=== PATIENT | male | born 1975 | race Hispanic/Latino ===

== ENCOUNTER 2018-05-12 09:53 | Emergency (ER) | payer OTHER ==
--- NOTE | 2018-05-12 11:02 | RAD ---
LEFT FOOT THREE VIEWS: HISTORY: Puncture wound and left foot pain. Evaluate for osseous injury. TECHNIQUE/FINDINGS: AP, lateral, and oblique views of the left foot demonstrate no evidence of left foot fractures, sublu xations, or bony lesions. IMPRESSION: Normal three views left foot. POS: [facility]
== END 2018-05-12 10:53 | disposition home or self-care (01) ==
LOC: SCSER 09:53
DX: S91.332A Puncture wound without foreign body, left foot, initial encounter (principal); W22.8XXA Striking against or struck by other objects, initial encounter
CPT/HCPCS: 90471